=== PATIENT | male | born 1995 | race American Indian/Alaskan Native ===

== ENCOUNTER 2017-01-05 13:28 | Emergency (ER) | payer SELFPAY ==
[2017-01-05 13:37] VITALS: BP 148/87
[2017-01-05 14:03] LABS: Basophils % (Auto) 1.2 % (0.0-1.8); Eosinophils % (Auto) 1.5 % (0.0-4.3); Hematocrit 45.5 % (35.5-45.6); Hemoglobin 15.3 gm/dl (11.8-15.2); Mean Corpuscular HGB Conc 34 % (32-34); Mean Corpuscular Hemoglobin 31 pg (28-32); Mean Corpuscular Volume 91 fl (84-94); Platelet Count 187 K/mm3 (140-440); Red Blood Count 5.01 M/mm3 (3.65-5.03); Red Cell Distribution Width 13.6 % (13.2-15.2); White Blood Count 5.7 K/mm3 (4.5-11.0)
[2017-01-05 14:15] LABS: Anion Gap 18 mmol/L; Blood Urea Nitrogen 11 mg/dL (9-20); Calcium 9.5 mg/dL (8.4-10.2); Carbon Dioxide 25 mmol/L (22-30); Chloride 103.8 mmol/L (98-107); Glucose 100 mg/dL (75-100); Potassium 4.1 mmol/L (3.6-5.0); Sodium 143 mmol/L (137-145)
--- NOTE | 2017-01-05 14:43 | Emergency Department Report ---
HPI - General Chief Complaint: Sore Throat Time Seen by Provider: 01/05/17 13:54 - HPI HPI: 21-year-old male complaining of sore throat for 2 weeks. He said the pain is burning and 10 out of 10. Denies any difficulty swallowing or drooling. He said throat is itchy when his sinus. Denies any difficulty breathing or chest pain. He reports that he is having coughing. No fever or chills. Denies any nausea or vomiting. His girlfriend is here with symptoms of sore throat and fever and chills. ED Past Medical Hx - Past Medical History Previous Medical History?: No - Surgical History Past Surgical History?: No - Family History Family history: no significant - Social History Smoking Status: Never Smoker Substance Use Type: None - Medications Home Medications: Home Medications Medication Instructions Recorded Confirmed Last Taken Type Phenazopyridine [Pyridium] 200 mg PO TID #6 tablet 03/28/14 Unknown Rx Sulfamethoxazole/Trimethoprim 1 each PO BID #14 tablet 03/28/14 Unknown Rx [Bactrim Ds] Amoxicillin [Amoxicillin TAB] 875 mg PO BID #20 tablet 01/05/17 Unknown Rx Cetirizine HCl [ZyrTEC] 10 mg PO QDAY #14 capsule 01/05/17 Unknown Rx Fluticasone [Flonase] 1 spray NS QDAY #1 bottle 01/05/17 Unknown Rx Ibuprofen [Motrin] 600 mg PO Q8H PRN #15 tablet 01/05/17 Unknown Rx ED Review of Systems ROS: Stated complaint: ITCHY THROAT/COUGH/NAUSEA Other details as noted in HPI Comment: All other systems reviewed and negative Constitutional: denies: chills, fever ENT: throat pain, congestion. denies: ear pain, dental pain, hearing loss Respiratory: cough. denies: orthopnea, shortness of breath, SOB with exertion, SOB at rest, stridor, wheezing Cardiovascular: denies: chest pain, palpitations, edema, syncope Gastrointestinal: denies: abdominal pain, nausea, vomiting Musculoskeletal: denies: back pain, arthralgia Skin: denies: rash Neurological: denies: headache, weakness, numbness, paresthesias, confusion, abnormal gait, vertigo Physical Exam - Physical Exam Vital Signs: Vital Signs 01/05/17 01/05/17 13:33 14:05 Temperature 98.7 F Pulse Rate 50 L Respiratory 20 18 Rate Blood Pressure 148/87 O2 Sat by Pulse 100 Oximetry Vital Signs 01/05/17 01/05/17 01/05/17 13:33 14:05 15:03 Temperature 98.7 F Pulse Rate 50 L Respiratory 20 18 18 Rate Blood Pressure 148/87 O2 Sat by Pulse 100 Oximetry 01/05/17 16:33 Temperature Pulse Rate 58 L Respiratory Rate Blood Pressure O2 Sat by Pulse Oximetry General: 21-year-old male well-nourished well-developed in no acute distress. Physical Exam: Head: Normocephalic atraumatic Mouth: Moist, no pharyngeal exudate or erythema. Uvula is midline and oral airway is patent. No gingival enlargement or dental tenderness. No facial swelling. No peritonsillar abscesses. No drooling and pelvis normal. Neck: Supple, no C-spine tenderness, no tracheal deviation. Nontender to palpate. no adenopathy Ears: Bilateral TMs congested without erythema .bilateral EAC without any redness swelling or drainage Eyes: Bilateral pupils equal and reactive to light, bilateral EOM intact. Bilateral sclera and conjunctiva without injection. Nose: Mucosa moist, pale and boggy. Positive clear drainage. maxillary and frontal sinus non-tender to palpate. Lungs: clear to auscultate bilaterally no rhonchi wheezes or rales. Normal work of breathing . Dry cough extremity; No CCE. +2 pulses. No neurovascular compromise Cardiovascular: S1-S2, regular rhythm. No murmurs. Pulse is 58 and patient is asymptomatic Skin: clean Dry and intact no rash no lesions Psych: Normal mood and behavior ED Course Vital Signs 01/05/17 01/05/17 13:33 14:05 Temperature 98.7 F Pulse Rate 50 L Respiratory 20 18 Rate Blood Pressure 148/87 O2 Sat by Pulse 100 Oximetry Vital Signs 01/05/17 01/05/17 01/05/17 13:33 14:05 15:03 Temperature 98.7 F Pulse Rate 50 L Respiratory 20 18 18 Rate Blood Pressure 148/87 O2 Sat by Pulse 100 Oximetry 01/05/17 16:33 Temperature Pulse Rate 58 L Respiratory Rate Blood Pressure O2 Sat by Pulse Oximetry - Reevaluation(s) Reevaluation #1: 01/05/17 16:36 Motrin 800 mg by mouth for sore throat ED Medical Decision Making - Lab Data Result diagrams: 01/05/17 13:40 01/05/17 13:40 Lab Results 01/05/17 01/05/17 Range/Units 13:40 13:40 WBC 5.7 (4.5-11.0) K/mm3 RBC 5.01 (3.65-5.03) M/mm3 Hgb 15.3 H (11.8-15.2) gm/dl Hct 45.5 (35.5-45.6) % MCV 91 (84-94) fl MCH 31 (28-32) pg MCHC 34 (32-34) % RDW 13.6 (13.2-15.2) % Plt Count 187 (140-440) K/mm3 Lymph % (Auto) 30.4 (13.4-35.0) % [place] % (Auto) 4.6 (0.0-7.3) % Eos % (Auto) 1.5 (0.0-4.3) % Baso % (Auto) 1.2 (0.0-1.8) % Lymph # 1.7 (1.2-5.4) K/mm3 [place] # 0.3 (0.0-0.8) K/mm3 Eos # 0.1 (0.0-0.4) K/mm3 Baso # 0.1 (0.0-0.1) K/mm3 Seg Neutrophils % 62.3 (40.0-70.0) % Seg Neutrophils # 3.5 (1.8-7.7) K/mm3 Sodium 143 (137-145) mmol/L Potassium 4.1 (3.6-5.0) mmol/L Chloride 103.8 (98-107) mmol/L Carbon Dioxide 25 (22-30) mmol/L Anion Gap 18 mmol/L BUN 11 (9-20) mg/dL Creatinine 1.0 (0.8-1.5) mg/dL Estimated GFR > 60 ml/min BUN/Creatinine Ratio 11.00 % Glucose 100 (75-100) mg/dL Calcium 9.5 (8.4-10.2) mg/dL - Medical Decision Making ED course: Patient has throat and other upper respiratory symptoms. His girlfriend is also here and was diagnosed with strep throat. Impression upper respiratory infection with cough. Exposure to strep from his girlfriend. I discussed diagnosis and treatment plan the patient and told him to go ahead and put him on Amox due to strep exposure. Patient voiced understanding. Patient discharged home with prescription for Zyrtec, Flonase and amoxicillin. Critical care attestation.: If time is entered above; I have spent that time in minutes in the direct care of this critically ill patient, excluding procedure time. ED Disposition Clinical Impression: Strep throat exposure, Cough in adult Upper respiratory tract infection Qualifiers: URI type: unspecified URI Qualified Code(s): J06.9 - Acute upper respiratory infection, unspecified Acute pharyngitis Qualifiers: Pharyngitis/tonsillitis etiology: unspecified etiology Qualified Code(s): J02.9 - Acute pharyngitis, unspecified Disposition: TO HOME OR SELFCARE Is pt being admited?: No Does the pt Need Aspirin: No Condition: Stable Instructions: Acute Cough (ED), Pharyngitis (ED), Upper Respiratory Infection ( ED) Additional Instructions: Take antibiotic Medication as prescribed Take Motrin as prescribed for sore throat Follow up with Primary care physician in 4 days and if he do not have one he can follow-up at [facility]. Prescriptions: Amoxicillin [Amoxicillin TAB] 875 mg PO BID #20 tablet Cetirizine HCl [ZyrTEC] 10 mg PO QDAY #14 capsule Fluticasone [Flonase] 1 spray NS QDAY #1 bottle Ibuprofen [Motrin] 600 mg PO Q8H PRN #15 tablet PRN Reason: Pain Referrals: PRIMARY CARE, [Primary Care Provider] - 01/09/17 [facility] [Outside] - 01/09/17 Forms: Work/School Release Form(ED)
[2017-01-05] MEDS ORDERED: MOTRIN PO ONE (14:51)
== END 2017-01-05 16:51 | disposition home or self-care (01) ==
LOC: ED 13:28
DX: J06.9 Acute upper respiratory infection, unspecified (principal); J02.9 Acute pharyngitis, unspecified
CPT/HCPCS: 36415; 80048; 85025; 99283

== ENCOUNTER 2018-04-04 08:07 | Emergency (ER) | payer OTHER ==
[2018-04-04 08:19] VITALS: BP 125/74
[2018-04-04] MEDS ORDERED: MOTRIN PO ONE (08:41)
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
== END 2018-04-04 10:11 | disposition home or self-care (01) ==
LOC: ED 08:07
DX: S13.4XXA Sprain of ligaments of cervical spine, initial encounter (principal); S39.012A Strain of muscle, fascia and tendon of lower back, initial encounter; J45.909 Unspecified asthma, uncomplicated; V89.2XXA Person injured in unspecified motor-vehicle accident, traffic, initial encounter; Y93.89 Activity, other specified; Y92.89 Other specified places as the place of occurrence of the external cause; Y99.8 Other external cause status
CPT/HCPCS: 72040; 72100; 99283

== ENCOUNTER 2018-09-14 13:52 | Emergency (ER) | payer OTHER ==
[2018-09-14 15:35] VITALS: BP 117/70
--- NOTE | 2018-09-14 15:42 | Emergency Department Report ---
Chief Complaint: Urogenital-Male Stated Complaint: STD CHECK Time Seen by Provider: 09/14/18 15:38 - HPI History of Present Illness: This is a 23 y.o. male that presents with penile discharge that started last night. - ROS Review of Systems: penile discharge - Exam Vital Signs: Vital Signs 09/14/18 15:35 Temperature 98.3 F Pulse Rate 68 Respiratory 16 Rate Blood Pressure 117/70 [Right] O2 Sat by Pulse 100 Oximetry MSE screening note: Focused history and physical exam performed. Due to findings the following was ordered: Labs Fast track for further evaluation. ED Disposition for MSE Condition: Stable
[2018-09-14 16:39] LABS: Bacteria,Urine 1+ /HPF (Negative); Bilirubin,Urine NEG (Negative); Blood,Urine NEG (Negative); Color,Urine Yellow (Yellow); Protein,Urine <15 mg/dL mg/dL (Negative); Urobilinogen,Urine < 2.0 mg/dL (<2.0)
== END 2018-09-14 18:30 | disposition left against medical advice (07) ==
LOC: ED 13:52
DX: R36.9 Urethral discharge, unspecified (principal); Z53.21 Procedure and treatment not carried out due to patient leaving prior to being seen by health care provider
CPT/HCPCS: 81001; 87591

== ENCOUNTER 2018-09-16 15:51 | Emergency (ER) | payer OTHER ==
[2018-09-16 16:01] VITALS: BP 133/79
--- NOTE | 2018-09-16 16:01 | Emergency Department Report ---
Blank Doc - Documentation Documentation: This is a 23-year-old male that presents with STD check. Stated has some penile discharge. This initial assessment/diagnostic orders/clinical plan/treatment(s) is/are subject to change based on patient's health status, clinical progression and re- assessment by fellow clinical providers in the ED. Further treatment and workup at subsequent clinical providers discretion. Patient/guardians urged not to elope from the ED as their condition may be serious if not clinically assessed and managed. Initial orders include: 1- Patient sent to [facility] for further evaluation and treatment
--- NOTE | 2018-09-16 17:26 | Emergency Department Report ---
ED Male HPI - General Chief complaint: Urogenital-Male Stated complaint: STD CHECK Time Seen by Provider: 09/16/18 16:00 Source: patient Mode of arrival: Ambulatory Limitations: No Limitations - History of Present Illness Initial comments: Pt is a 23 yo male who presents to the ED with c/o penile discharge that began a couple of days ago. He states that the discharge is clear/white. The patient denies any itching, fever, sores, lesions, or blistering. The patient states he is sexually active and does not use protection. He states he has had 1 partner this month. He denies any hx of STDs. - Related Data Previous Rx's Medication Instructions Recorded Last Taken Type Ciprofloxacin HCl [Ciprofloxacin 500 mg PO BID 10 Days #20 tablet 09/16/18 Unknown Rx TAB] Allergies Allergy/AdvReac Type Severity Reaction Status Date / Time No Known Allergies Allergy Verified 09/16/18 15:53 ED Review of Systems ROS: Stated complaint: STD CHECK Other details as noted in HPI Comment: All other systems reviewed and negative ED Past Medical Hx - Past Medical History Hx Asthma: Yes (pediatric) - Social History Smoking Status: Current Every Day Smoker Substance Use Type: Alcohol, Marijuana - Medications Home Medications: Home Medications Medication Instructions Recorded Confirmed Last Taken Type Ciprofloxacin HCl [Ciprofloxacin 500 mg PO BID 10 Days #20 tablet 09/16/18 Unknown Rx TAB] ED Physical Exam - General Limitations: No Limitations General appearance: alert, in no apparent distress - Head Head exam: Present: atraumatic, normocephalic - Eye Eye exam: Present: normal appearance - ENT ENT exam: Present: mucous membranes moist - exam: Present: normal inspection, other (Male RN, [place] present during examination and swabbing, no obvious penile discharge at the opening of the urethra, no lesions/blistering present on the genitals). Absent: testicular tenderness, urethral discharge, scrotal swelling - Neurological Exam Neurological exam: Present: alert, oriented X3 - Psychiatric Psychiatric exam: Present: normal affect, normal mood ED Course Vital Signs 09/16/18 15:59 Temperature 98.1 F Pulse Rate 80 Respiratory 18 Rate Blood Pressure 133/79 O2 Sat by Pulse 98 Oximetry ED Medical Decision Making - Medical Decision Making Pt presents with penile discharge for the last few days. He is sexually active and does not use protection. UA done on 09/14/18 which showed 11 WBCs will tx with ciprofloxacin x10 days. Swabbed pt today for G/C. Will tx pt in the emergency room with azithromycin and ceftriaxone. Advised pt if concerned for HIV/syphilis or any further STD testing would need to be seen at the health department. Pt verbalized understanding and agrees. Advised to follow up with primary care doctor in the next 2-3 days. Critical care attestation.: If time is entered above; I have spent that time in minutes in the direct care of this critically ill patient, excluding procedure time. ED Disposition Clinical Impression: Penile discharge UTI (urinary tract infection) Qualifiers: Urinary tract infection type: site unspecified Hematuria presence: without hematuria Qualified Code(s): N39.0 - Urinary tract infection, site not specified Disposition: TO HOME OR SELFCARE Is pt being admited?: No Does the pt Need Aspirin: No Condition: Stable Instructions: Sexually Transmitted Diseases (ED), Safe Sex (ED) Additional Instructions: Follow up with your primary care provider in the next 2-3 days. Take all medication as prescribed. If concerned about further STD testing would need to be seen by the health department. Prescriptions: Ciprofloxacin HCl [Ciprofloxacin TAB] 500 mg PO BID 10 Days #20 tablet Referrals: JIM MELÉNDEZ MD [Primary Care Provider] - 3-5 Days Time of Disposition: 17:43 Print Language: INDONESIAN
[2018-09-16] MEDS ORDERED: ZITHROMAX PO ONE (17:35)
[2018-09-16] MEDS ORDERED: ROCEPHIN IM ONE (17:35)
== END 2018-09-16 18:54 | disposition home or self-care (01) ==
LOC: ED 15:51
DX: N39.0 Urinary tract infection, site not specified (principal); F17.200 Nicotine dependence, unspecified, uncomplicated; F12.10 Cannabis abuse, uncomplicated; J45.909 Unspecified asthma, uncomplicated
CPT/HCPCS: 96372; 99282; J0696